=== PATIENT | female | born 1990 | race Two or more races ===

== ENCOUNTER → 2025-03-23 | Outpatient (CLI) | payer BC, SELFPAY ==
[2025-03-23 08:55] LABS: Rubella, IgG Antibody Reactive (Immune)
[2025-03-28 06:51] LABS: Measles Antibody (IGG), Immun* >300.00 AU/mL; Mumps Virus Ab (IgG) Immune* <9.00 AU/mL; Varicella-Zoster IgG Ab* 3.41 S/CO
== END | disposition home or self-care (01) ==
LOC: COPL 07:20
PROVIDERS: PCP Family Medicine; Referring Provider Family Medicine; Visit Provider Family Medicine
DX: Z00.00 Encounter for general adult medical examination without abnormal findings (principal); Z13.0 Encounter for screening for diseases of the blood and blood-forming organs and certain disorders involving the immune mechanism
CPT/HCPCS: 36415; 86735; 86762; 86765; 86787

== ENCOUNTER → 2025-06-20 | Outpatient (CLI) | payer BC, SELFPAY ==
[2025-06-20 08:50] LABS: Basophils # (Auto) 0.1 Thou/mm3 (0.0-0.2); Basophils % (Auto) 1 % (0-2.5); Eosinophils # (Auto) 0.6 Thou/mm3 (0.0-0.5); Eosinophils % (Auto) 5 % (0-10); Hematocrit 42.4 % (36.0-46.0); Hemoglobin 14.2 g/dL (12.0-16.0); Immature Granulocytes Auto 0.05 Thou/mm3 (0.00-0.00); Lymphocytes # (Auto) 3.3 Thou/mm3 (1.0-4.8); Lymphocytes % (Auto) 31 % (10-50); Mean Corpuscular HGB Conc 33.5 g/dl (31.0-37.0); Mean Corpuscular Hemoglobin 31.8 pg (25.0-35.0); Mean Corpuscular Volume 95 fL (80-100); Monocytes # (Auto) 0.7 Thou/mm3 (0.0-0.8); Monocytes % (Auto) 6 % (0-12); Neutrophils # (Auto) 5.8 Thou/mm3 (1.8-7.7); Neutrophils % (Auto) 56 % (37-80); Nucleated Red Blood Cell # 0.00 Thou/mm3 (0.00-0.00); Nucleated Red Blood Cell % 0 /100 WBC (0); Platelet Count 388 Thou/mm3 (140-440); RDW Standard Deviation 43.1 fL (36.4-46.3); Red Blood Count 4.47 Miln/mm3 (4.00-5.20); White Blood Count 10.5 Thou/mm3 (3.6-11.0)
[2025-06-20 09:30] LABS: Glucose Estimated Average 111 mg/dL (80-131); Hemoglobin A1C 5.5 % Hgb (4.8-6.0)
[2025-06-20 10:13] LABS: Alanine Aminotransferase 140 U/L (10-49); Albumin, Serum 4.6 gm/dL (3.5-5.0); Albumin/Globulin Ratio 1.8 (1.2-2.2); Alkaline Phosphatase 81 U/L (46-116); Anion Gap 11 (7-16); Aspartate Amino Transferase 214 U/L (0-34); BUN/Creatinine Ratio 14 Ratio (12-20); Bilirubin,Total 0.3 mg/dL (0.3-1.2); Blood Urea Nitrogen 11 mg/dL (9-23); Calcium 9.7 mg/dL (8.3-10.6); Calcium (Corrected) 9.7 mg/dL (8.5-10.1); Carbon Dioxide 22.7 mMol/L (20.0-31.0); Cardiac Risk Estimate 6.7 RATIO (3.7-5.6); Chloride 106 mMol/L (98-107); Cholesterol 321 mg/dL (132-200); Creatinine (Component) 0.8 mg/dL (0.6-1.3); Globulin 2.5 gm/dL (2.3-3.5); Glucose 94 mg/dL (74-106); HDL Cholesterol 48 mg/dL (40-60); LDL Cholesterol,Calculated 215 mg/dL (0-130); Osmolality,Calculated 278 (275-295); Potassium 3.9 mMol/L (3.4-5.1); Sodium 140 mMol/L (136-145); Thyroid Stimulating Hormone 9.86 uIU/mL (0.55-4.78); Total Protein 7.1 gm/dL (5.7-8.2); Triglycerides 288 mg/dL (30-150); eGFR > 60 See Note
[2025-06-25 06:52] LABS: DHEA Sulfate* 142 mcg/dL (23-266)
== END | disposition home or self-care (01) ==
LOC: COPL 07:17
PROVIDERS: PCP Family Medicine; Referring Provider Family Medicine; Visit Provider Family Medicine
DX: R63.5 Abnormal weight gain (principal); N93.8 Other specified abnormal uterine and vaginal bleeding
CPT/HCPCS: 36415; 80053; 80061; 82627; 83036; 84443; 85025

== ENCOUNTER → 2025-07-25 | Outpatient (CLI) | payer BC, SELFPAY ==
[2025-07-25 09:41] LABS: Quantiferon-TB* See Sep Rpt
== END | disposition home or self-care (01) ==
LOC: COPL 09:12
PROVIDERS: PCP Family Medicine; Referring Provider Family Medicine; Visit Provider Family Medicine
DX: Z00.00 Encounter for general adult medical examination without abnormal findings (principal)
CPT/HCPCS: 86480